=== PATIENT | female | born 1995 | race Caucasian/White ===

== ENCOUNTER → 2023-12-27 13:56 | Outpatient (REF) | payer OTHER, SELFPAY | LOC: HWRAD 13:56 | PROVIDERS: ATTENDING PHYSICIAN Nurse Practitioner Family; FAMILY PHYSICIAN Family Medicine | DX: N93.0 Postcoital and contact bleeding (principal) | CPT/HCPCS: 76830; 76856 ==

== ENCOUNTER 2025-04-27 19:56 | Inpatient (IN) | payer OTHER, SELFPAY ==
[2025-04-27 20:05] VITALS: BP 125/77; BMI 34.2
[2025-04-27 21:01] LABS: Hematocrit 35.9 % (37.0-47.0); Hemoglobin 12.5 g/dL (12.0-16.0); Mean Corp Hgb Conc. 34.8 g/dL (33.0-37.0); Mean Corpuscular Volume 87.3 fL (81.0-99.0); Nucleated Red Blood Cells % 0 %; Platelet Count 278 10^3/uL (130-400); Red Cell Dist. Width 14.0 % (11.5-14.5)
[2025-04-27] MEDS: LR 1000 IV (21:35)
[2025-04-27] MEDS: PITOCIN 30 UNITS/NSS 500 ML IV (21:35)
[2025-04-28] MEDS: LR 1000 IV ×2 (01:25→14:28)
[2025-04-28] MEDS: SUBLIMAZE 100 MCG EPIDURAL (03:05)
[2025-04-28] MEDS: FENTANYL/BUPIVACAINE 100 EPIDURAL (03:06)
[2025-04-28] MEDS: TYLENOL 975 MG PO (10:07)
[2025-04-28] MEDS: BICITRA 30 ML PO (10:07)
[2025-04-28] MEDS: PITOCIN 30 UNITS/NSS 500 ML IV (14:28)
[2025-04-28] MEDS: TORADOL 15 MG IV ×2 (16:02→22:28)
[2025-04-28] MEDS: COLACE 100 MG PO (20:15)
[2025-04-29] MEDS: TORADOL 15 MG IV ×2 (04:06→09:43)
[2025-04-29 04:33] LABS: Hematocrit 30.5 % (37.0-47.0); Hemoglobin 10.3 g/dL (12.0-16.0); Mean Corp Hgb Conc. 33.8 g/dL (33.0-37.0); Mean Corpuscular Volume 90.8 fL (81.0-99.0); Platelet Count 160 10^3/uL (130-400); Red Cell Dist. Width 14.3 % (11.5-14.5)
[2025-04-29] MEDS: PRENATAL PLUS 1 TABLET PO (07:59)
[2025-04-29] MEDS: FEOSOL 325 MG PO (07:59)
[2025-04-29] MEDS: COLACE 100 MG PO ×2 (07:59→20:02)
--- NOTE | 2025-04-29 11:08 | W.PN.ANS.POP ---
Anesthesia Post Operative
- Anesthesia Post Op Note
Vital Signs Stable-See Nursing Note: Yes
Airway Patent: Yes
Adequate Pain Control: Yes
Change in Mental Status: No
Current Postoperative Nausea & Vomiting: No
Anesthesia Complications: No
General Anesthetic Recall: No
Unplanned Admission: No
Post Op Hydration Adequate: Yes
[2025-04-29] MEDS: TYLENOL 650 MG PO ×2 (16:11→22:48)
[2025-04-29] MEDS: MOTRIN 600 MG PO ×2 (16:11→22:48)
[2025-04-29] MEDS: MYLICON 80 MG PO (22:56)
[2025-04-30] MEDS: TYLENOL 650 MG PO ×4 (04:37→23:10)
[2025-04-30] MEDS: MYLICON 80 MG PO ×4 (06:36→23:11)
[2025-04-30] MEDS: MOTRIN 600 MG PO ×4 (06:36→23:10)
[2025-04-30] MEDS: FEOSOL 325 MG PO (08:19)
[2025-04-30] MEDS: COLACE 100 MG PO ×2 (08:19→20:55)
[2025-04-30] MEDS: PRENATAL PLUS 1 TABLET PO (08:19)
[2025-04-30 12:57] LABS: Syphilis/T. pallidum Ab Reflex Negative (Negative)
[2025-05-01] MEDS: MOTRIN 600 MG PO ×2 (06:02→13:04)
[2025-05-01] MEDS: TYLENOL 650 MG PO ×2 (06:02→13:04)
[2025-05-01] MEDS: MYLICON 80 MG PO (06:28)
[2025-05-01] MEDS: COLACE 100 MG PO (08:33)
[2025-05-01] MEDS: FEOSOL 325 MG PO (08:33)
[2025-05-01] MEDS: PRENATAL PLUS 1 TABLET PO (08:33)
--- NOTE | 2025-05-01 18:22 | W.DS.TRANS ---
DC Summary - [employer]st
-
Discharge Instructions:
Discharge Diagnosis/Procedures delivery
Instructions:
Stand-Alone Forms: LDRP Delivery
Changes to Home Medications: No
Discharge Medications:
DC Medications w/original date entered in [facility]
[id number] 1 mg tablet 1 tab PO DAILY Supplement 04/27/25
acetaminophen 325 mg tablet 650 mg (2 x 325 mg) PO Q4HPRN PRN mild pain #0 tabs 05/01/25
docusate sodium 100 mg capsule 100 mg PO BID #0 caps 05/01/25
ferrous sulfate 325 mg (65 mg iron) tablet (FeroSul) 325 mg PO DAILY #0 tabs 05/01/25
ibuprofen 600 mg tablet 600 mg PO Q6HPRN PRN cramps #30 tabs 05/01/25
sennosides 8.6 mg tablet (Lesly-satya) 17.2 mg (2 x 8.6 mg) PO HSPRN PRN constipation #0 tabs 05/01/25
simethicone 80 mg chewable tablet 80 mg PO TIDPRN PRN flatulence #0 tabs 05/01/25
Home Medication Changes
Pending Results: No
Total time spent discharging patient (in min): 20
== END 2025-05-01 13:24 | disposition home or self-care (01) | DRG 788 ==
LOC: LDRP 19:56
PROVIDERS: Obstetrics & Gynecology; ADMITTING PHYSICIAN Obstetrics & Gynecology; FAMILY PHYSICIAN Family Medicine
PROC: 10D00Z1 Extraction of Products of Conception, Low, Open Approach (ICD-10-PCS; 2025-04-28)
DX: O48.0 Post-term pregnancy (principal); Z3A.40 40 weeks gestation of pregnancy; Z37.0 Single live birth; O62.1 Secondary uterine inertia; O75.81 Maternal exhaustion complicating labor and delivery; O32.2XX0 Maternal care for transverse and oblique lie, not applicable or unspecified
CPT/HCPCS: 85025; 85027; 86780; 86850; 86900; 86901